=== PATIENT | female | born 1995 | race African-American/Black ===

== ENCOUNTER → 2016-12-18 | Outpatient (CLI) | payer BC, OTHER ==
[~2016-12-18] MED LIST: BCPILLS PO; BIOT1CAP8 PO; LORA-339
[2016-12-22 07:04] LABS: CHLAMYDIA TRACH RNA*** NOT DETECTED (NOT DETECTED); GC (NEIS GONORRHOEAE)RNA** NOT DETECTED (NOT DETECTED)
== END | disposition home or self-care (01) ==
LOC: C.LABSPEC 14:28
PROVIDERS: ATTEND Obstetrics & Gynecology
DX: Z11.3 Encounter for screening for infections with a predominantly sexual mode of transmission (principal); R87.610 Atypical squamous cells of undetermined significance on cytologic smear of cervix (ASC-US)

== ENCOUNTER → 2016-12-18 | Outpatient (CLI) | payer BC, OTHER | END | disposition home or self-care (01) | LOC: C.PAPS 08:47 | PROVIDERS: ATTEND Obstetrics & Gynecology | DX: Z01.411 Encounter for gynecological examination (general) (routine) with abnormal findings (principal); R87.610 Atypical squamous cells of undetermined significance on cytologic smear of cervix (ASC-US) ==

== ENCOUNTER → 2017-02-20 | Outpatient (CLI) | payer OTHER ==
[2017-02-24 02:32] LABS: CHLAMYDIA TRACH RNA*** NOT DETECTED (NOT DETECTED); GC (NEIS GONORRHOEAE)RNA** NOT DETECTED (NOT DETECTED)
== END | disposition home or self-care (01) ==
LOC: C.LABSPEC 17:39
PROVIDERS: ATTEND Physician Assistant
DX: L29.8 Other pruritus (principal); N89.8 Other specified noninflammatory disorders of vagina

== ENCOUNTER → 2017-03-25 | Outpatient (CLI) | payer OTHER | END | disposition home or self-care (01) | LOC: C.LABSPEC 17:47 | PROVIDERS: ATTEND Physician Assistant | DX: L29.8 Other pruritus (principal) ==

== ENCOUNTER → 2018-03-08 | Outpatient (CLI) | payer OTHER | END | disposition home or self-care (01) | LOC: C.LAB1850 11:21 | PROVIDERS: ATTEND Obstetrics & Gynecology | DX: R39.9 Unspecified symptoms and signs involving the genitourinary system (principal) ==

== ENCOUNTER → 2018-03-23 | Outpatient (CLI) | payer OTHER | END | disposition home or self-care (01) | LOC: C.LAB1850 14:28 | PROVIDERS: ATTEND Obstetrics & Gynecology | DX: R39.9 Unspecified symptoms and signs involving the genitourinary system (principal) ==